=== PATIENT | female | born 1980 | race Caucasian/White ===

== ENCOUNTER 2020-04-14 11:46 | Emergency (ER) | payer OTHER ==
[2020-04-14] MEDS ORDERED: FAMOTIDINE 20 MG/2 ML VIAL IV ONE (12:53)
[2020-04-14] MEDS ORDERED: DIPHENHYDRAMINE 50 MG/ML VIAL ONE (12:53)
[2020-04-14] MEDS ORDERED: dexAMETHasone 10 MG/ML VIAL ONE (12:53)
--- NOTE | 2020-04-14 16:32 | RAD REPORT ---
EXAM DESCRIPTION: RAD - Chest Single View - 04/14/2020 3:42 pm CLINICAL HISTORY: COUGH, allergic reaction, shortness of breath COMPARISON: None TECHNIQUE: AP portable chest image was obtained 04/14/2020 3:42 pm . FINDINGS: Lungs are clear. Heart and vasculature are normal. No measurable pleural effusion and no p neumothorax. No acute bony abnormality seen. No acute aortic findings suspected. IMPRESSION: No acute cardiopulmonary process.
--- NOTE | 2020-04-14 17:02 | EDPHYS ---
Physician Documentation [facility] Name: Mikaela Davila Age: 39 yrs Sex: Female : 1980 Arrival Date: 04/14/2020 Time: 11:47 Bed 26 Private MD: ED Physician Jose Aldridge HPI: 04/14 12:21 This 39 yrs old Female presents to ER via Ambulatory with complaints of jmm Allergic Reaction - amoxiclav, Hives. 12:21 Onset: The symptoms/episode began/occurred gradually, today. Associated signs and jmm symptoms: Pertinent negatives: abdominal pain, fever, Syncope vomiting. This is a 39 year old female with no chronic medical conditions that presents to the ED with complaints of diffuse rash after taking augmentin. Denies vomiting, or shortness of breath. Historical: - Allergies: 04/15 11:28 No Known Allergies; iw - Social history:: Smoking status: unknown. ROS: 04/14 12:21 Constitutional: Negative for fever, chills, and weight loss, Cardiovascular: Negative jmm for chest pain, palpitations, and edema, Respiratory: Negative for shortness of breath, cough, wheezing, and pleuritic chest pain. Skin: Positive for rash. All other systems are negative. Exam: 12:21 Constitutional: This is a well developed, well nourished patient who is awake, alert, jmm and in no acute distress. Head/Face: atraumatic. Eyes: EOMI, no conjunctival erythema appreciated ENT: Moist Mucus Membranes Neck: Trachea midline, Supple Chest/axilla: Normal chest wall appearance and motion. Cardiovascular: Regular rate and rhythm. No edema appreciated Respiratory: Normal respirations, no respiratory distress appreciated Abdomen/GI: Non distended, soft Back: Normal ROM 12:21 Skin: erythematous rash noted to the back, forearms, hands. 12:21 Neuro: Orientation: is normal, Mentation: is normal, Memory: is normal. 12:21 Psych: Behavior/mood is pleasant, cooperative. Vital Signs: 11:53 BP 164 / 78; Pulse 103; Resp 18 S; Temp 99.3; Pulse Ox 98% on R/A; Weight 108.86 kg; iw Height 5 ft. 8 in. (172.72 cm); 17:02 BP 128 / 63; Pulse 77; Resp 16; Temp 98.0; Pulse Ox 99% ; iw 11:53 Body Mass Index 36.49 (108.86 kg, 172.72 cm) MDM: 12:19 Patient medically screened. [facility] 17:01 Data reviewed: vital signs, nurses notes. Counseling: I had a detailed discussion with alisa the patient and/or guardian regarding: the historical points, exam findings, and any diagnostic results supporting the discharge/admit diagnosis, the need for outpatient follow up, to return to the emergency department if symptoms worsen or persist or if there are any questions or concerns that arise at home. 04/14 13:14 Order name: COVID-19 [facility] 04/14 14:23 Order name: Chest Single View XRAY; Complete Time: 16:35 [facility] 04/14 12:21 Order name: Saline Lock; Complete Time: 12:47 [facility] Administered Medications: 12:47 Drug: Decadron - Dexamethasone 10 mg Route: IVP; Site: right hand; 12:47 Drug: Benadryl 25 mg Route: IVP; Site: right hand; 12:47 Drug: Pepcid 20 mg Route: IVP; Site: right hand; Disposition: 17:33 Co-signature as Attending Physician, Jose Aldridge MD. rn Disposition: 04/14/20 17:01 Discharged to Home. Impression: Rash and other nonspecific skin eruption, Acute upper respiratory infection, unspecified. - Condition is Stable. - Discharge Instructions: Rash, Upper Respiratory Infection, Adult. - Prescriptions for Hydroxyzine HCl 25 mg Oral Tablet - take 1 tablet by ORAL route every 6 hours As needed; 30 tablet. Prednisone 20 mg Oral Tablet - take 3 tablet by ORAL route once daily for 5 days; 15 tablet. Albuterol Sulfate 90 mcg/actuation - inhale 1-2 puff by INHALATION route every 4-6 hours; 1 Inhaler. - Medication Reconciliation Form, Thank You Letter, Antibiotic Education, Prescription Opioid Use form. - Follow up: Private Physician; When: 2 - 3 days; Reason: Recheck today's complaints, Continuance of care, Re-evaluation by your physician. Signatures: Dispatcher [employer] EDMS Raffi Cai PA PA [facility] Lianne Tafoya RN RN Jose Aldridge MD MD yarn examiner: (The following items were deleted from the chart) 17:18 17:01 04/14/2020 17:01 Discharged to Home. Impression: Rash and other nonspecific skin iw eruption; Acute upper respiratory infection, unspecified. Condition is Stable. Forms are Medication Reconciliation Form, Thank You Letter, Antibiotic Education, Prescription Opioid Use. Follow up: Private Physician; When: 2 - 3 days; Reason: Recheck today's complaints, Continuance of care, Re-evaluation by your physician. ilana
--- NOTE | 2020-04-14 17:02 | ER ---
Nurse's Notes [facility] Name: Mikaela Davila Age: 39 yrs Sex: Female : 1980 Arrival Date: 04/14/2020 Time: 11:47 Bed 26 Private MD: Diagnosis: Rash and other nonspecific skin eruption;Acute upper respiratory infection, unspecified Presentation: 04/14 11:53 Chief complaint: Patient states: took some amoxicillin about 40 minutes ago and started iw to break out in hives 10 minutes later. Ebola Screen: Patient negative for fever greater than or equal to 101.5 degrees Fahrenheit, and additional compatible Ebola Virus Disease symptoms Patient denies exposure to infectious person. Patient denies travel to an Ebola-affected area in the 21 days before illness onset. No symptoms or risks identified at this time. Initial Sepsis Screen: Does the patient meet any 2 criteria? No. Patient's initial sepsis screen is negative. Does the patient have a suspected source of infection? No. Patient's initial sepsis screen is negative. Risk Assessment: Do you want to hurt yourself or someone else? Patient reports no desire to harm self or others. Onset of symptoms was April 14, 2020. 11:53 Method Of Arrival: Ambulatory iw 11:53 Acuity: CECILIO 3 iw 12:00 Anaphylaxis evaluation, the patient reports or I have noted the following symptoms iw which indicate a significant risk of anaphylaxis:. 12:00 Coronavirus screen: At this time, the client does not indicate any symptoms associated iw with coronavirus-19. Triage Assessment: 16:00 General: Appears in no apparent distress. iw 16:00 General: Behavior is calm. iw Historical: - Allergies: 04/15 11:28 No Known Allergies; iw - Social history:: Smoking status: unknown. Screenin/27 17:01 Abuse screen: Denies threats or abuse. Denies injuries from another. Nutritional iw screening: No deficits noted. Tuberculosis screening: No symptoms or risk factors identified. Fall Risk None identified. Assessment: 12:00 General: Appears in no apparent distress. Behavior is calm, cooperative. Pain:. iw 12:00 Respiratory: Airway is patent. iw 13:00 Respiratory: Respiratory effort is even, unlabored, Breath sounds are clear. iw 17:01 Reassessment: Patient appears in no apparent distress at this time. Patient and/or iw family updated on plan of care and expected duration. Pain level reassessed. Patient is alert, oriented x 3, equal unlabored respirations, skin warm/dry/pink. 17:01 Reassessment: Patient states feeling better. Patient states symptoms have improved. iw Vital Signs: 11:53 BP 164 / 78; Pulse 103; Resp 18 S; Temp 99.3; Pulse Ox 98% on R/A; Weight 108.86 kg; iw Height 5 ft. 8 in. (172.72 cm); 17:02 BP 128 / 63; Pulse 77; Resp 16; Temp 98.0; Pulse Ox 99% ; iw 11:53 Body Mass Index 36.49 (108.86 kg, 172.72 cm) iw ED Course: 11:47 Patient arrived in ED. as 11:55 Triage completed. iw 11:55 Raffi Cai PA is PHCP. [facility] 11:56 Jose Aldridge MD is Attending Physician. [facility] 11:58 Lianne Tafoya RN is Primary Nurse. iw 11:58 Arm band placed on. iw 12:00 Patient has correct armband on for positive identification. iw 12:30 Inserted saline lock: 22 gauge. iw 15:42 Chest Single View XRAY In Process Unspecified. EDMS 17:17 No provider procedures requiring assistance completed. IV discontinued. iw Administered Medications: 12:47 Drug: Decadron - Dexamethasone 10 mg Route: IVP; Site: right hand; iw 12:47 Drug: Benadryl 25 mg Route: IVP; Site: right hand; iw 12:47 Drug: Pepcid 20 mg Route: IVP; Site: right hand; iw Outcome: 17:01 Discharge ordered by . [facility] 17:17 Discharged to home ambulatory. iw 17:17 Condition: good 17:17 Discharge instructions given to 17:18 Patient left the ED. iw Addendum: 04/17/2020 08:01 Addendum: COVID-19 Result: Negative result given to RN to notify pt. Notified pt of d m5 negative COVID 19 swab results. Pt advised that even with a negative test result they should remain in isolation until symptom free for 3 days without medication. Pt also advised to return to the ED for worsening symptoms. Signatures: Dispatcher [employer] EDMS Dawna Emanuel, RN RN dm5 Raffi Cai PA PA jmm Martinez, Amelia as Williams, Irene, RN RN iw
[2020-04-14 17:26] VITALS: BP 128/63; TEMP 98; O2SAT 99
== END 2020-04-14 17:18 | disposition home or self-care (01) ==
LOC: ER 11:46
DX: J06.9 Acute upper respiratory infection, unspecified (principal); Z20.828 Contact with and (suspected) exposure to other viral communicable diseases
CPT/HCPCS: 71045; 96375; 96374; 99283; U0002; J1200; J1100

== ENCOUNTER 2020-11-22 09:05 | Emergency (ER) | payer OTHER ==
--- OUTSIDE RECORDS SUMMARY | 2020-11-22 09:08 | XMS REPORT | Continuity of Care Document ---
:1980 Author Organization [facility] t Address [address] [place] [address] Care Team Providers Name Role Phone Nalini PARIKH Attending Clinician Phu LUIS Attending Clinician Problems This patient has no known problems. Allergies, Adverse Reactions, Alerts This patient has no known allergies or adverse reactions. Medications This patient has no known medications. Procedures This patient has no known procedures. Encounters Start End Encounter Admission Attending Care Care Encounter Source Date/Time Date/Time Type Type Clinicians Facility Department ID 2020-11-15 2020-11-15 Patient [facility] [id number] 00:00:00 00:00:00 Secure Msg Brayan Martinez [id number] [place] [id number] Professio [phone] [place] [address] Building 2020-11-01 2020-11-01 Telephone [facility] [id number] 00:00:00 00:00:00 [facility] [id number] [place] [id number] Professio [phone] [place] [address] Office [address] 2020-11-01 2020-11-01 Telephone Nalini [facility] [id number] 00:00:00 00:00:00 Brayan Martinez [id number] [place] [id number] Professio [phone] [facility] 044 [facility] 2020-10-15 2020-10-15 Telephone Herbertgonzalo [facility] [id number] 00:00:00 00:00:00 Brayan Martinez [id number] [place] [id number] [facility] [phone] [address] Results This patient has no known results.
--- NOTE | 2020-11-22 09:46 | ER ---
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 Coronavirus screen: Client denies travel out of the [place] in the last 14 days. At this time, the client does not indicate any symptoms associated with coronavirus-19. Ebola Screen: Patient negative for fever greater than or equal to 101.5 degrees Fahrenheit, and additional compatible Ebola Virus Disease symptoms Patient denies exposure to infectious person. Patient denies travel to an Ebola-affected area in the 21 days before illness onset. No symptoms or risks identified at this time. Initial Sepsis Screen: Does the patient meet any 2 criteria? No. Patient's initial sepsis screen is negative. Does the patient have a suspected source of infection? No. Patient's initial sepsis screen is negative. Risk Assessment: Do you want to hurt yourself or someone else? Patient reports no desire to harm self or others. Onset of symptoms was November 22, 2020. 09:52 Method Of Arrival: Ambulatory ca1 09:52 Acuity: CECILIO 4 ca1 Triage Assessment: 09:53 General: Appears in no apparent distress. comfortable, Behavior is calm, cooperative, ca1 appropriate for age. Pain: Complains of pain in left hand. Injury Description: Laceration sustained to palmar aspect of distal phalanx of left ring finger is clean, superficial, 0.5 to 2.5 cm long, was sustained 1-2 hours ago. no active bleeding noted at this time. 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 Last tetanus immunization: up to date. - Social history:: Smoking status: Patient reports the use of cigarette tobacco products, smokes one-half pack cigarettes per day. Screenin:54 Abuse screen: Denies threats or abuse. Denies injuries from another. Nutritional ca1 screening: No deficits noted. Tuberculosis screening: No symptoms or risk factors identified. Fall Risk None identified. Assessment: 09:54 Reassessment: see triage notes. ca1 Vital Signs: 09:52 BP 121 / 86; Pulse 89; Resp 16 S; Temp 97.3(TE); Pulse Ox 100% on R/A; Pain 3/10; ca1 ED Course: 09:18 Patient arrived in ED. mr 09:31 Eric Franco PA is PHCP. jr8 09:31 Jameel Yin MD is Attending Physician. jr8 09:43 Wound care: to laceration located on left middle finger was cleaned with soap and mt water, dressed with 4X4s, Kerlix, Patient tolerated well. 09:45 Luli Thompson RN is Primary Nurse. ca1 09:53 Triage completed. ca1 09:53 Arm band placed on right wrist. ca1 09:54 Patient has correct armband on for positive identification. ca1 09:55 Assist provider with laceration repair on palmar aspect of distal phalanx of left ring ca1 finger that was 2.5 cm. or less using Steri-strips. Set up tray. Performed by Eric DOTY Dressed with 4X4s, Patient tolerated well. Patient did not have IV access during this emergency room visit. Administered Medications: No medications were administered Outcome: 09:46 Discharge ordered by . jr8 09:55 Discharged to home ambulatory. ca1 09:55 Condition: stable 09:55 Discharge instructions given to patient, Instructed on discharge instructions, follow up and referral plans. wound care, Demonstrated understanding of instructions, follow-up care, wound care. 09:56 Patient left the ED. ca1 Signatures: Ambar Lu mr Eric Franco PA PA 8 Deandra Cho co Luli Thompson, DUDLEY RN ca1
--- NOTE | 2020-11-22 09:46 | EDPHYS ---
Physician Documentation [facility] Name: Mikaela Davila Age: 40 yrs Sex: Female : 1980 Arrival Date: 11/22/2020 Time: 09:18 Bed 12 Private MD: ED Physician Jameel Yin HPI: 11/22 09:43 This 40 yrs old Female presents to ER via Unassigned with complaints of jr8 Finger Laceration. 09:43 Onset: The symptoms/episode began/occurred acutely, today. Modifying factors: The jr8 symptoms are alleviated by nothing, the symptoms are aggravated by nothing. Associated signs and symptoms: The patient has no apparent associated signs or symptoms. Severity of symptoms: At their worst the symptoms were mild, in the emergency department the symptoms are unchanged. The patient has not experienced similar symptoms in the past. The patient has not recently seen a physician. Patient stated that she was reaching for a toothbrush and accidentally cut her left middle finger on a razor.. 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 Last tetanus immunization: up to date. - Social history:: Smoking status: Patient reports the use of cigarette tobacco products, smokes one-half pack cigarettes per day. ROS: 09:43 Eyes: Negative for injury, pain, redness, and discharge, ENT: Negative for injury, jr8 pain, and discharge, Neck: Negative for injury, pain, and swelling, Cardiovascular: Negative for chest pain, palpitations, and edema, Respiratory: Negative for shortness of breath, cough, wheezing, and pleuritic chest pain, Abdomen/GI: Negative for abdominal pain, nausea, vomiting, diarrhea, and constipation, Back: Negative for injury and pain, MS/Extremity: Negative for injury and deformity, Neuro: Negative for headache, weakness, numbness, tingling, and seizure. 09:43 Skin: Positive for laceration(s). Exam: 09:43 Constitutional: This is a well developed, well nourished patient who is awake, alert, jr8 and in no acute distress. Cardiovascular: Regular rate and rhythm with a normal S1 and S2. No gallops, murmurs, or rubs. Normal PMI, no JVD. No pulse deficits. Respiratory: Lungs have equal breath sounds bilaterally, clear to auscultation and percussion. No rales, rhonchi or wheezes noted. No increased work of breathing, no retractions or nasal flaring. MS/ Extremity: Pulses equal, no cyanosis. Neurovascular intact. Full, normal range of motion. Neuro: Awake and alert, GCS 15, oriented to person, place, time, and situation. Cranial nerves II-XII grossly intact. Motor strength 5/5 in all extremities. Sensory grossly intact. Cerebellar exam normal. Normal gait. 09:43 Skin: Patient has small superficial laceration to the tip of the left middle finger.. Vital Signs: 09:52 BP 121 / 86; Pulse 89; Resp 16 S; Temp 97.3(TE); Pulse Ox 100% on R/A; Pain 3/10; ca1 MDM: 09:31 Patient medically screened. jr8 09:43 Data reviewed: vital signs, nurses notes, and as a result, I will discharge patient. jr8 Data interpreted: Pulse oximetry: on room air is 100 %. Interpretation: normal. Counseling: I had a detailed discussion with the patient and/or guardian regarding: the historical points, exam findings, and any diagnostic results supporting the discharge/admit diagnosis, the need for outpatient follow up, a family practitioner, to return to the emergency department if symptoms worsen or persist or if there are any questions or concerns that arise at home. ED course: Disc discussed with patient that at this time there is no need for laceration repair of the digit. Superficial in nature. Wound was cleaned and dressed. Can follow-up with primary care. Watch for signs of infection. If this were to happen to come back for further evaluation antibiotic therapy.. Administered Medications: No medications were administered Disposition: 10:16 Co-signature as Attending Physician, Jameel Yin MD I agree with the assessment and kdr plan of care. Disposition Summary: 11/22/20 09:46 Discharge Ordered Location: Home jr8 Problem: new jr8 Symptoms: have improved jr8 Condition: Stable jr8 Diagnosis - Laceration without foreign body of left middle finger without damage to nail jr8 Followup: jr8 - With: Private Physician - When: As needed - Reason: Wound Recheck, Recheck today's complaints, Continuance of care, Re-evaluation by your physician Discharge Instructions: - Discharge Summary Sheet jr8 - Laceration Care, Adult jr8 Forms: - Medication Reconciliation Form jr8 - Thank You Letter jr8 - Antibiotic Education jr8 - Prescription Opioid Use jr8 - Work release form ca1 Signatures: Jameel Yin MD MD [facility] Eric Franco PA PA jr8 Luli Thompson RN RN ca1
[2020-11-22 10:05] VITALS: BP 121/86; TEMP 97.3; O2SAT 100
== END 2020-11-22 09:56 | disposition home or self-care (01) ==
LOC: ER 09:05
DX: S61.213A Laceration without foreign body of left middle finger without damage to nail, initial encounter (principal); W45.8XXA Other foreign body or object entering through skin, initial encounter; Y93.89 Activity, other specified; Y92.002 Bathroom of unspecified non-institutional (private) residence as the place of occurrence of the external cause; Z88.1 Allergy status to other antibiotic agents; Z88.8 Allergy status to other drugs, medicaments and biological substances; E11.9 Type 2 diabetes mellitus without complications; F17.210 Nicotine dependence, cigarettes, uncomplicated
CPT/HCPCS: 99283

== ENCOUNTER 2020-12-05 19:26 | Emergency (ER) | payer OTHER ==
--- OUTSIDE RECORDS SUMMARY | 2020-12-05 19:30 | XMS REPORT | Continuity of Care Document ---
:1980 Author Organization [facility] t Address [address] [place] [address] Care Team Providers Name Role Phone Nalini [...] Clinicians Facility Department ID 2020-11-15 2020-11-15 Patient [facility] [id number] 00:00:00 00:00:00 Secure Msg Brayan Martinez [id number] [place] [id number] Professio [phone] [place] [address] Building 2020-11-01 2020-11-01 Telephone [facility] [id number] 00:00:00 00:00:00 [facility] [id number] [place] [id number] Professio [phone] nal [facility] Office Building One 2020-11-01 2020-11-01 Telephone [facility] [id number] 00:00:00 00:00:00 Brayan Martinez [id number] [place] [id number] Profess[address] [phone] [address] 2020-10-15 2020-10-15 Telephone [facility] [id number] 00:00:00 00:00:00 Brayan Martinez [id number] [place] [id number] [facility] [phone] [address] Results This patient has no known results.
[2020-12-05 22:15] LABS: Absolute Lymphocytes (CBC) 2.3 K/uL (0.7-4.9); Basophils % 0.6 % (0-1.3); Hematocrit 36.2 % (36.0-45.0); Lymphocytes % 17.5 % (15.3-44.8); MPV 6.6 fL (7.6-11.3); RBC Red Blood Cell Count 4.09 M/uL (3.86-4.86)
[2020-12-05 22:33] LABS: Urine Specific Gravity/Preg 1.025 (1.005-1.030)
[2020-12-05] MEDS ORDERED: TETANUS & DIPHTHERIA TOX,ADULT 0.5 ML VIAL ONE (22:34)
[2020-12-05 22:36] LABS: ALT/SGPT 22 U/L (12-78); AST/SGOT 16 U/L (15-37); Albumin 3.9 g/dL (3.4-5.0); Alkaline Phosphatase 68 U/L (45-117); BUN Blood Urea Nitrogen 12 mg/dL (7-18); Bicarbonate 29 mmol/L (21-32); Bilirubin Direct < 0.1 mg/dL (0-0.2); Bilirubin Total 0.3 mg/dL (0.2-1.0); Glucose Level 94 mg/dL (74-106); Potassium 4.1 mmol/L (3.5-5.1); Protein, Total 7.2 g/dL (6.4-8.2); Sodium Level 141 mmol/L (136-145)
--- NOTE | 2020-12-05 22:57 | EDPHYS ---
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 cp 22:03 Area of exposure: right index finger. Context: The problem was sustained at a dental cp office. Onset: The symptoms/episode began/occurred today. Symptoms: The patient does not have any acute complaints. Discussed low incidence and risk for amado HIV, hepatitis. Patient requesting to start antiviral therapy. 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 - Social history:: Smoking status: Patient reports the use of cigarette tobacco products, smokes one-half pack cigarettes per day, Patient uses alcohol, occasionally. ROS: 22:03 Constitutional: Negative for fever, poor PO intake. cp 22:03 Skin: Positive for puncture, of the dorsal side proximal phalanx right index finger. 22:05 All other systems are negative. cp Exam: 22:05 Head/Face: Normocephalic, atraumatic. cp 22:05 Constitutional: The patient appears in no acute distress, alert, awake, non-toxic, well developed, well nourished. 22:05 Cardiovascular: Rate: normal, Rhythm: regular. 22:05 Respiratory: the patient does not display signs of respiratory distress, Respirations: normal, no use of accessory muscles, no retractions. 22:05 Skin: cellulitis, is not appreciated, injury, that can be described as no foreign body, without bleeding, puncture(s), that are superficial, of the dorsal side proximal phalanx of right index finger. Vital Signs: 19:50 BP 140 / 84; Pulse 80; Resp 20; Temp 98.3(O); Pulse Ox 100% on R/A; Weight 104.33 kg kg (R); Height 5 ft. 8 in. (172.72 cm) (R); Pain 0/10; 21:54 BP 130 / 79; Pulse 77; Resp 18; Pulse Ox 100% on R/A; em 19:50 Body Mass Index 34.97 (104.33 kg, 172.72 cm) kg MDM: 21:53 Patient medically screened. cp 22:55 Data reviewed: vital signs, nurses notes, lab test result(s). cp 22:55 Counseling: I had a detailed discussion with the patient and/or guardian regarding: the cp historical points, exam findings, and any diagnostic results supporting the discharge/admit diagnosis, lab results, the need for outpatient follow up, a family practitioner, to return to the emergency department if symptoms worsen or persist or if there are any questions or concerns that arise at home. ED course: VSS. Labs reviewed and discussed. HIV and hepatitis panel pending. Patient instructed to access [place] for results. Will discharge to home for continued monitoring. Antiviral prescriptions given to take for next 28 days. 12/05 22:01 Order name: CBC with Diff; Complete Time: 22:33 cp 12/05 22:34 Interpretation: Normal except: WBC 13.10; MPV 6.6; NEUT A 9.6. cp 12/05 22:01 Order name: Chem 7; Complete Time: 22:50 cp 12/05 22:50 Interpretation: Normal except: CL 109. 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 Exp: em 07/18/2022. Lot #: [id number]. } Route: IM; Site: left deltoid; 22:22 Follow up: Response: No adverse reaction em Disposition: 23:00 Chart complete. cp 12/06 07:33 Co-signature as Attending Physician, Cecy Lagunas I agree with the assessment and plan sp3 of care. Disposition Summary: 12/05/20 22:56 Discharge Ordered Location: Home cp Problem: new cp Symptoms: have improved cp Condition: Stable cp Diagnosis - Puncture wound without foreign body of other finger without damage to nail, initial cp encounter - right index Followup: cp - With: Private Physician - When: 2 - 3 days - Reason: Recheck today's complaints Discharge Instructions: - Discharge Summary Sheet cp - Needlestick and Sharps Injury cp - Puncture Wound cp Forms: - Medication Reconciliation Form cp - Thank You Letter cp - Antibiotic Education cp - Prescription Opioid Use cp Prescriptions: - Isentress 400 mg Oral tablet - take 1 tablet by ORAL route 2 times per day for 28 days; 56 tablet; Refills: 0, cp Product Selection Permitted - Truvada 200-300 mg Oral tablet - take 1 tablet by ORAL route once daily for 28 days; 28 tablet; Refills: 0, cp Product Selection Permitted Signatures: Dispatcher [facility] EDKY Lewis Raya, RN RN em Reji Wooten PA PA cp Shena Cortez, DUDLEY RN Cecy Arita sp3 Corrections: (The following items were deleted from the chart) 12/05 22:35 22:03 HIV (1 ordered. EDKY EDMS
--- NOTE | 2020-12-05 22:57 | ER ---
Nurse's Notes 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 Coronavirus screen: Client denies travel out of the [place] in the last 14 days. At this time, unable to obtain information related to travel outside the [place] At this time, the client does not indicate any symptoms associated with coronavirus-19. Ebola Screen: Patient negative for fever greater than or equal to 101.5 degrees Fahrenheit, and additional compatible Ebola Virus Disease symptoms Patient denies exposure to infectious person. Patient denies travel to an Ebola-affected area in the 21 days before illness onset. Initial Sepsis Screen: Does the patient meet any 2 criteria? No. Patient's initial sepsis screen is negative. Does the patient have a suspected source of infection? No. Patient's initial sepsis screen is negative. Risk Assessment: Do you want to hurt yourself or someone else? Patient reports no desire to harm self or others. Onset of symptoms was December 05, 2020 at 18:45. 19:50 Method Of Arrival: Ambulatory kg 19:50 Acuity: CECILIO 4 kg Triage Assessment: 19:53 General: Appears in no apparent distress. Behavior is calm, cooperative, appropriate kg for age. Pain: Denies pain. 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 - Social history:: Smoking status: Patient reports the use of cigarette tobacco products, smokes one-half pack cigarettes per day, Patient uses alcohol, occasionally. Screenin:54 Abuse screen: Denies threats or abuse. Denies injuries from another. Nutritional em screening: No deficits noted. Tuberculosis screening: No symptoms or risk factors identified. Fall Risk None identified. Assessment: 21:54 General: Appears in no apparent distress. comfortable, Behavior is calm, cooperative, em appropriate for age. Pain: Denies pain. Neuro: Level of Consciousness is awake, alert, obeys commands, Oriented to person, place, time, situation. Cardiovascular: Capillary refill < 3 seconds Patient's skin is warm and dry. Respiratory: Airway is patent Respiratory effort is even, unlabored, Respiratory pattern is regular, symmetrical. GI: Abdomen is round non-distended. : No signs and/or symptoms were reported regarding the genitourinary system. EENT: No signs and/or symptoms were reported regarding the EENT system. Derm: Reports getting poked with a dirty dental tool while at work. Reports the tool breaking the skin and bleeding. Musculoskeletal: No signs and/or symptoms reported regarding the musculoskeletal system. Vital Signs: 19:50 BP 140 / 84; Pulse 80; Resp 20; Temp 98.3(O); Pulse Ox 100% on R/A; Weight 104.33 kg kg (R); Height 5 ft. 8 in. (172.72 cm) (R); Pain 0/10; 21:54 BP 130 / 79; Pulse 77; Resp 18; Pulse Ox 100% on R/A; em 19:50 Body Mass Index 34.97 (104.33 kg, 172.72 cm) kg ED Course: 19:29 Patient arrived in ED. cf2 19:53 Triage completed. kg 19:53 Arm band placed on right wrist. kg 21:25 Reji Wooten PA is PHCP. cp 21:25 Jose Aldridge MD is Attending Physician. cp 21:53 Lewis Raya, DUDLEY is Primary Nurse. em 21:54 Patient has correct armband on for positive identification. Placed in gown. Bed in low em position. Call light in reach. Pulse ox on. NIBP on. Warm blanket given. 21:54 No provider procedures requiring assistance completed. em 22:11 Cecy Lagunas is Attending Physician. cp 23:05 Patient did not have IV access during this emergency room visit. 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 Exp: em 07/18/2022. Lot #: [id number]. } Route: IM; Site: left deltoid; 22:22 Follow up: Response: No adverse reaction em Outcome: 22:56 Discharge ordered by MD. cp 23:05 Discharged to home ld1 23:05 Condition: stable 23:05 Discharge instructions given to patient, Instructed on discharge instructions, follow up and referral plans. medication usage, Demonstrated understanding of instructions, follow-up care, medications. 23:06 Patient left the ED. ld1 Signatures: Lewis Raya RN RN em Reji Wooten PA PA cp Reji Frias cf2 Lilibeth Adams RN RN ld1 Shena Cortez RN RN kg
[2020-12-05] MEDS ORDERED: ACETAMINOPHEN 500 MG TAB ONE (23:10)
[2020-12-06 01:49] VITALS: TEMP 98.3; O2SAT 100
[2020-12-06 01:52] VITALS: BP 130/79
[2020-12-10 15:34] LABS: HIV AG/AB 4TH GEN Non-reactive (Non-reactive)
== END 2020-12-05 23:06 | disposition home or self-care (01) ==
LOC: ER 19:26
DX: S61.230A Puncture wound without foreign body of right index finger without damage to nail, initial encounter (principal); F17.210 Nicotine dependence, cigarettes, uncomplicated; E11.9 Type 2 diabetes mellitus without complications; E03.9 Hypothyroidism, unspecified; Z23 Encounter for immunization; Z88.0 Allergy status to penicillin; Z88.1 Allergy status to other antibiotic agents; Z88.8 Allergy status to other drugs, medicaments and biological substances
CPT/HCPCS: 36415; 80048; 80076; 81025; 85025; 87389; 90471; 90714; 99283

== ENCOUNTER 2021-11-07 19:07 | Emergency (ER) | payer OTHER, SELFPAY ==
--- OUTSIDE RECORDS SUMMARY | 2021-11-07 19:16 | XMS REPORT | Continuity of Care Document ---
:1980 Author Organization [facility] t Address [address] [place] [address] Care Team Providers Name Role Phone Nalini PARIKH Primary Care Physician MERRY Attending Clinician Unavailable Dari WILLAMS Attending Clinician Unavailable Matty BUCKNER, T Attending Clinician Unavailable FAUSTO Attending Clinician Unavailable Nalini PARIKH Attending Clinician Fausto PARIKH Attending Clinician Phu LUIS Attending Clinician Payers Payer Name Policy Type Policy Number Effective Date Expiration Date S ource Problems Condition Condition Condition Status Onset Resolution Last Treating Co mments Source Name Details Category Date Date Treatment Clinician Date Nausea Nausea Disease Active 2020-04 Overview: Univer s 0-01 Formattin ity of 00:00: g of this note Medical might be Branch different from the original. Added automatic ally from request for surgery [id number] Lower Lower Disease Active 2020-04 Overview: Univer s abdominal abdominal 0-01 Formattin i ty of pain pain 00:00: g of this note Medical might be Branch different from the original. Added automatic ally from request for surgery [id number] Change in Change in Disease Active 2020-04 Overview: Univers bowel bowel 0-01 Formattin ity of habits habits 00:00: g of this note Medical might be Branch different from the original. 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 00:00: [place] depression depression 00 Tn dical Branch Need for Need for Disease Active Unive rs 23-polyval 23-polyval 6-29 it y of ent ent 00:00: [place] pneumococc pneumococc 00 [facility] al al Branch polysaccha polysaccha ride ride vaccine vaccine PCOS PCOS Disease Active 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: Leonel brenner syndrome) syndrome) 00 [facility] frida Branch Plantar Plantar Disease Active Univers fasciitis fasciitis 2-27 ity of 00:00: [place] 00 Medical Branch Diabetes Diabetes Disease Active Unive rs mellitus mellitus 2-27 ity of type 2 in type 2 in 00:00: Leonel brenner obese obese 00 Medical Branch Elevated Elevated Disease Active Unive rs blood blood 2-27 ity of pressure pressure 00:00: [place] reading in reading in 00 Tn dical office office Branch without without diagnosis diagnosis of of hypertensi hypertensi on on Encounter Encounter Disease Active Uni vers for for 2-27 ity of routine routine 00:00: [place] [facility] 00 Medical vision vision Branch examinatio examinatio n n Left wrist Left wrist Disease Active U nivers pain pain 2-18 ity of 00:00: [place] 00 Medical Branch Diarrhea, Diarrhea, Disease Active Uni vers unspecifie unspecifie 2-18 it y of d type d type 00:00: [place] 00 Medical Branch Left Left Disease Active 2020- Univers shoulder shoulder 2-13 ity of pain, pain, 00:00: [place] unspecifie unspecifie 00 Tn dical d d Branch chronicity chronicity 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 2-13 it y of asthma asthma 00:00: [place] without without 00 Medical complicati complicati Br anch on on Food Food Disease Active 2020- Univers sensitivit sensitivit 2-13 it y of y with y with 00:00: [place] gastrointe gastrointe 00 Tn dical stinal stinal Branch symptoms symptoms Neck pain Neck pain Disease Active 2020 Uni vers on left on left 2-13 ity of side side 00:00: [place] 00 Medical Branch Depression Depression Disease Active 2020-0 U nivers , , 2-13 ity of unspecifie unspecifie 00:[place] 00 Medical depression depression Br anch type type Acquired Acquired Disease Active 2019- Unive rs hypothyroi hypothyroi 2-13 it y of dism dism 00:00: [place] 00 Medical Branch Left hip Left hip Disease Active 2019- Unive rs pain pain 2-13 ity of 00:00: [place] 00 Medical Branch Fibromyalg Fibromyalg Disease Active 2019- U nivers ia ia 2-13 ity of 00:00: [place] 00 Medical Branch Chronic Chronic Disease Active 2020-0 Univers left left 2-13 ity of shoulder shoulder 00:00: [place] pain pain 00 Medical Branch Chronic Chronic Disease Active 2020-0 Univers pain of pain of 2-13 ity of left knee left [place] 00:[place] Pharyngiti Pharyngiti Disease Active 2019- U nivers s, s, 7-24 ity of unspecifie unspecifie [place] etiology d etiology 00 Tn dical Branch Bacterial Bacterial Disease Active Uni vers upper upper 7-24 ity of respirator respirator 00:[place] y 00 Medical infection infection Bran ch Productive Productive Disease Active 2019- U nivers cough cough 7-24 ity of 00:00: [place] 00 Medical Branch Body mass Body mass Disease Active 2018- Uni vers index index 5-29 ity of (BMI) of (BMI) of 00:00: [place] 34.0 to 34.0 to 00 Medical 34.9 in 34.9 in Branch adult adult Disease Active U nivers depression depression 6-21 it y of 00:00: [place] 00 Medical Branch Class 2 Class 2 Disease Active 2018-0 Univers obesity obesity 5-25 ity of due to due to 00:00: [place] excess excess 00 Medical calories calories Branch without without serious serious comorbidit comorbidit y with y with body mass body mass index index (BMI) of (BMI) of 38.0 to 38.0 to 38.9 in 38.9 in adult adult Excessive Excessive Disease Active Uni vers weight weight 1-18 ity of gain gain 00:00: [place] 00 Medical Branch Mild Mild Disease Active 2016-04 Univers intermitte intermitte 0-30 it y of nt asthma nt asthma 00:00[place] without without 00 Medical complicati complicati Br anch on on Anxiety Anxiety Disease Active 2016-04 Univers 0-30 ity of 00:00: [place] 00 Medical Branch Adrenal Adrenal Disease Active 2016-04 Univers tumor tumor 0-30 ity of 00:00: [place] 00 Medical Branch Absence of Absence of Disease Active 2016-04 U nivers menstruati menstruati 0-04 it y of on on 00:00: [place] 00 Medical Branch Toe Toe Disease Active Univers fracture, fracture, 7-26 ity of left, with left, with 00:[place] routine routine 00 Medical healing, healing, Branch subsequent subsequent encounter encounter Pain of Pain of Disease Active Univers toe of toe of 6-22 ity of left foot left foot 00:00[place] S/P S/P Disease Active Univers orthopedic orthopedic 6-22 it y of surgery, surgery, 00:00: [place] follow-up follow-up 00 [facility] frida exam exam Branch History of History of Disease Active U johnny cervical cervical 2-19 ity of dysplasia dysplasia 00:00[place] Lump or Lump or Disease Active Univers mass in mass in 1-21 ity of breast breast 00:00: [place] 00 Medical Branch Allergies, Adverse Reactions, Alerts Allergy Allergy Status Severity Reaction(s) Onset Inactive Treating Comm ents Source Name Type Date Date Clinician AMOXICIL DRUG Active High Anaphylaxis Uni vers LEXI-POT 4-14 ity of CLAVULAN 00:00: [place] ATE 00 Medical Branch Amoxicil Propensi Active Swelling Univ ers lexi-Pot ty to 4-14 ity of Clavulan adverse 00:00: [place] ate reaction 00 Medical s to Branch drug METOCLOP DRUG Active Hallucinates 2015-0 Un becka RAMIDE INGREDI 1-11 ity of HCL 00:00: [place] 00 Medical Branch Metoclop Propensi Active Hallucinatio 2015-0 Univers ramide ty to ns 1-11 ity of Hcl adverse 00:00: [place] reaction 00 Medical s Branch Social History Social Habit Start Date Stop Date Quantity Comments Source Exposure to Not sure [facility] SARS-CoV-2 (event) [place] [facility] History SDOK [facility] University o f Alcohol Std Drinks [place] [facility] [place] History [facility] o f Alcohol Binge [facility] Branch Alcohol intake 2021-03-24 2021-03-24 0 /d University of 00:00:00 00:00:00 [facility] Cigarettes smoked 2021-02-12 2021-02-12 Univers ity of current (pack per 00:00:00 00:00:00 [facility] ) - Reported Branch Cigarette 2021-02-12 2021-02-12 University of pack-years 00:00:00 00:00:00 [facility] Tobacco use and 2021-02-12 2021-02-12 Smokeless Universit y of exposure 00:00:00 00:00:00 tobacco non-user [facility] [place] [facility] Comment 2019-04-27 2019-04-27 rare Universit y of 00:00:00 00:00:00 [facility] History of tobacco 2016-09-27 Cigarette Smoker University of use 00:00:00 [facility] Sex [birth year] Universit y of 00:00:00 00:00:00 [facility] Smoking Status Start Date Stop Date Source Smokes tobacco daily 2021-02-12 00:00:00 Univers ity of [facility] Medications Ordered Filled Start Stop Current Ordering Indication Dosage Frequency Signature Comments Components Source Medication Medication Date Date Medication? Clinician (SIG) Name Name albuterol Yes [id number] 2{puff} Inhale 2 Univers (PROAIR 2-22 103 Puffs ity of HFA) 90 00:00: every 6 [place] mcg/actuati 00 (six) Medical on inhaler hours as Branc h needed for Wheezing or Shortness of Breath. ALBUTEROL Yes [id number] INHALE 2 Univers 90 2- 103 PUFFS ity of mcg/actuati 00:00: EVERY 6 [place] as on inhaler 00 HOURS Medical Branch ALBUTEROL Yes [id number] INHALE 2 Univers 90 2-22 103 PUFFS ity of mcg/actuati 00:00: EVERY 6 [place] on inhaler 00 HOURS Medical Branch albuterol 2021- No [id number] 2{puff} Inhale 2 Univers (PROAIR 06-10- 103 Puffs ity of HFA) 90 00:00: 00:00 every 6 [place] mcg/actuati 00 :00 (six) Medical on inhaler hours as Branc h needed for Wheezing or Shortness of Breath. pantoprazol 2020-04 Yes [id number] 40mg Take 1 Univers e 40 mg EC 2-06 tablet by ity of tablet 00:00: mouth 2 [place] (two) Medical times Branch daily. pantoprazol 2020-04 Yes [id number] 40mg Take 1 Univers e 40 mg EC 2-06 tablet by ity of tablet 00:00: mouth 2 [place] (two) Medical times Branch daily. pantoprazol 2020-04 Yes [id number] 40mg Take 1 Univers e 40 mg EC 2-06 tablet by ity of tablet 00:00: mouth 2 [place] (two) Medical times Branch daily. pantoprazol 2020-04 Yes [id number] 40mg Take 1 Univers e 40 mg EC 2-06 tablet by ity of tablet 00:00: mouth 2 [place] (two) Medical times Branch daily. PROAIR HFA 2020-04 Yes [id number] INHALE BY Univers 90 2- 103 MOUTH 2 ity of mcg/actuati 00:00: PUFFS [place] on inhaler 00 EVERY 6 Medica l HOURS Branch NEEDED PROAIR HFA 2020-04- No [id number] INHALE BY Univers 90 2-03 - 103 MOUTH 2 ity of mcg/actuati 00:00: 00:00 [place]S [place] on inhaler 00 :00 EVERY 6 Medica l HOURS Branch NEEDED guaiFENesin 2020-04 Yes [id number] 400mg Take 1 Univers 400 mg 1-22 tablet by ity of tablet 00:00: mouth [place] 00 every 4 Medical (four) Branch hours as needed for Cough. fluticasone 2020-04 Yes [id number] 1{puff} Inhale 1 Univers propionate 1-22 Puff every ity of 110 00:00: 12 [place] mcg/actuati 00 (twelve) Medi frida on inhaler hours. Branch guaiFENesin 2020-04 Yes [id number] 400mg Take 1 Univers 400 mg 1-22 tablet by ity of tablet 00:00: mouth [place] 00 every 4 Medical (four) Branch hours as needed for Cough. fluticasone 2020-04 Yes [id number] 1{puff} Inhale 1 Univers propionate 1-22 Puff every ity of 110 00:00: 12 [place] mcg/actuati 00 (twelve) Medi frida on inhaler hours. Branch guaiFENesin 2020-04 Yes [id number] 400mg Take 1 Univers 400 mg 1-22 tablet by ity of tablet 00:00: mouth [place] 00 every 4 Medical (four) Branch hours as needed for Cough. fluticasone 2020-04 Yes [id number] 1{puff} Inhale 1 Univers propionate 1-22 Puff every ity of 110 00:00: 12 [place] mcg/actuati 00 (twelve) Medi frida on inhaler hours. Branch guaiFENesin 2020-04 Yes [id number] 400mg Take 1 Univers 400 mg 1-22 tablet by ity of tablet 00:00: mouth [place] 00 every 4 Medical (four) Branch hours as needed for Cough. fluticasone 2020-04 Yes [id number] 1{puff} Inhale 1 Univers propionate 1-22 Puff every ity of 110 00:00: 12 [place] mcg/actuati 00 (twelve) Medi frida on inhaler hours. Branch pantoprazol 2020-04- No [id number] 40mg Take 1 Univers e 40 mg EC 04-27- tablet by ity of tablet 00:00: 00:00 mouth [place] 00 :00 daily for Medical 30 days. Branch metformin 2020- Yes [id number] 500mg Take 1 U nivers ER 500 mg 6-30 tablet by ity o f 24 hr 00:00: mouth [place] tablet 00 daily with Medical breakfast. Branch levothyroxi Yes [id number] 25ug Take 1 Univers ne 25 mcg 6-30 tablet by ity o f tablet 00:00: mouth [place] 00 every Medical morning. Branch metformin 2020-0 Yes [id number] 500mg Take 1 U nivers ER 500 mg 6-30 tablet by ity o f 24 hr 00:00: mouth [place] tablet 00 daily with Medical breakfast. Branch levothyroxi 2020-0 Yes [id number] 25ug Take 1 Univers ne 25 mcg 6-30 tablet by ity o f tablet 00:00: mouth [place] 00 every Medical morning. Branch metformin 2020-0 Yes [id number] 500mg Take 1 U nivers ER 500 mg 6-30 tablet by ity o f 24 hr 00:00: mouth [place] tablet 00 daily with Medical breakfast. Branch levothyroxi 2020-0 Yes [id number] 25ug Take 1 Univers ne 25 mcg 6-30 tablet by ity o f tablet 00:00: mouth [place] 00 every Medical morning. Branch metformin 2020-0 Yes [id number] 500mg Take 1 U nivers ER 500 mg 6-30 tablet by ity o f 24 hr 00:00: mouth [place] tablet 00 daily with Medical breakfast. Branch levothyroxi 2020-0 Yes [id number] 25ug Take 1 Univers ne 25 mcg 6-30 tablet by ity o f tablet 00:00: mouth [place] 00 every Medical morning. Branch semaglutide 2020-0 Yes [id number] 1mg inject 1 Univers (OZEMPIC) 1 6-29 mg under ity of mg/dose (2 00:00: the skin [place] mg/1.5 mL) 00 weekly. Medica l PnIj Start: Branch 0.25mg SC qweek X 4 weeks; then increase to 0.50mg SC qweek X 4 weeks; then increase to 1mg SC aqweek. niacin 100 2020-0 Yes [id number] 100mg Take 1 Univers mg tablet 6-29 tablet by ity o f 00:00: mouth at [place] 00 bedtime. Medical Branch semaglutide 2020-0 Yes [id number] 1mg inject 1 Univers (OZEMPIC) 1 6-29 mg under ity of mg/dose (2 00:00: the skin [place] mg/1.5 mL) 00 weekly. Medica l PnIj Start: Branch 0.25mg SC qweek X 4 weeks; then increase to 0.50mg SC qweek X 4 weeks; then increase to 1mg SC aqweek. niacin 100 Yes [id number] 100mg Take 1 Univers mg tablet 6-29 tablet by ity o f 00:00: mouth at [place] 00 bedtime. Medical Branch semaglutide Yes [id number] 1mg inject 1 Univers (OZEMPIC) 1 6-29 mg under ity of mg/dose (2 00:00: the skin [place] mg/1.5 mL) 00 weekly. Medica l PnIj Start: Branch 0.25mg SC qweek X 4 weeks; then increase to 0.50mg SC qweek X 4 weeks; then increase to 1mg SC aqweek. niacin 100 Yes [id number] 100mg Take 1 Univers mg tablet 6-29 tablet by ity o f 00:00: mouth at [place] 00 bedtime. Medical Branch semaglutide Yes [id number] 1mg inject 1 Univers (OZEMPIC) 1 6-29 mg under ity of mg/dose (2 00:00: the skin [place] mg/1.5 mL) 00 weekly. Medica l PnIj Start: Branch 0.25mg SC qweek X 4 weeks; then increase to 0.50mg SC qweek X 4 weeks; then increase to 1mg SC aqweek. niacin 100 Yes [id number] 100mg Take 1 Univers mg tablet 6-29 tablet by ity o f 00:00: mouth at [place] 00 bedtime. Medical Branch blood sugar Yes [id number] Use as Univers diagnostic 10-08 directed, ity of (BLOOD 00:00: TID, [place] GLUCOSE 00 DX:E11.9, Medical TEST) strip uses Branch [facility] brand lancets 33 Yes [id number] Use as U nivers gauge Misc 10-08 directed, ity of 00:00: TID, [place] 00 DX:E11.9, Medical uses Branch [facility] brand Miscellaneo Yes [id number] I10 - U nivers us Medical 10-08 Dispense ity o f Supply Kit 00:00: blood [place] 00 pressure Medical cuff (any Branch brand), take BP at home BID lisinopriL Yes [id number] 5mg Take 1 U nivers 5 mg tablet 6-22 tablet by ity of 00:00: mouth [place] 00 daily. Medical Branch albuterol-i Yes [id number] 1{puff} Inhale 1 Univers pratropium 6-22 Puff 4 ity of 20-100 00:00: (four) [place] mcg/actuati 00 times Medical on inhaler daily. Branch ipratropium Yes [id number] .5mg Inhale 2.5 Univers 0.02 % 6-22 mL every 6 ity of nebulizer 00:00: (six) [place] solution 00 hours as Medical needed for Branch Wheezing or Shortness of Breath. albuterol Yes [id number] 2.5mg Inhale 3 Univers 2.5 mg /3 6-22 mL every 4 ity of mL (0.083 00:00: (four) [place] %) 00 hours as Medical nebulizer needed for Bran ch solution Wheezing or Shortness of Breath. blood sugar Yes [id number] Use as Univers diagnostic 6-22 directed, ity of (BLOOD 00:00: TID, [place] GLUCOSE 00 DX:E11.9, Medical TEST) strip uses Branch [facility] brand lancets 33 Yes [id number] Use as U nivers gauge Misc 6-22 directed, ity of 00:00: TID, [place] 00 DX:E11.9, Medical uses Branch [facility] brand Miscellaneo Yes [id number] I10 - U nivers us Medical -22 Dispense ity o f Supply Kit 00:00: blood [place] 00 pressure Medical cuff (any Branch brand), take BP at home BID lisinopriL Yes [id number] 5mg Take 1 U nivers 5 mg tablet 6-22 tablet by ity of 00:00: mouth 00 daily. Medical Branch albuterol-i Yes [id number] 1{puff} Inhale 1 Univers pratropium 6-22 Puff 4 ity of 20-100 00:00: (four) [place] mcg/actuati 00 times Medical on inhaler daily. Branch ipratropium Yes [id number] .5mg Inhale 2.5 Univers 0.02 % 6-22 mL every 6 ity of nebulizer 00:00: (six) [place] solution 00 hours as Medical needed for Branch Wheezing or Shortness of Breath. albuterol 0 Yes [id number] 2.5mg Inhale 3 Univers 2.5 mg /3 6-22 mL every 4 ity of mL (0.083 00:00: (four) [place] %) 00 hours as Medical nebulizer needed for Bran ch solution Wheezing or Shortness of Breath. blood sugar 0 Yes [id number] Use as Univers diagnostic 6-22 directed, ity of (BLOOD 00:00: TID, [place] GLUCOSE 00 DX:E11.9, Medical TEST) strip uses Branch [facility] brand lancets 33 0 Yes [id number] Use as U nivers gauge Misc 6-22 directed, ity of 00:00: TID, [place] 00 DX:E11.9, Medical uses Branch [facility] brand Miscellaneo 0 Yes [id number] I10 - U nivers us Medical 22 Dispense ity o f Supply Kit 00:00: blood [place] 00 pressure Medical cuff (any Branch brand), take BP at home BID lisinopriL 0 Yes [id number] 5mg Take 1 U nivers 5 mg tablet 6-22 tablet by ity of 00:00: mouth [place] 00 daily. Medical Branch albuterol-i Yes [id number] 1{puff} Inhale 1 Univers pratropium 6-22 Puff 4 ity of 20-100 00:00: (four) [place] mcg/actuati 00 times Medical on inhaler daily. Branch ipratropium 0 Yes [id number] .5mg Inhale 2.5 Univers 0.02 % 6-22 mL every 6 ity of nebulizer 00:00: (six) [place] solution 00 hours as Medical needed for Branch Wheezing or Shortness of Breath. albuterol 0 Yes [id number] 2.5mg Inhale 3 Univers 2.5 mg /3 6-22 mL every 4 ity of mL (0.083 00:00: (four) [place] %) 00 hours as Medical nebulizer needed for Bran ch solution Wheezing or Shortness of Breath. blood sugar Yes [id number] Use as Univers diagnostic 6-22 directed, ity of (BLOOD 00:00: TID, [place] GLUCOSE 00 DX:E11.9, Medical TEST) strip uses Branch [facility] brand lancets 33 Yes [id number] Use as U nivers gauge Misc 6-22 directed, ity of 00:00: TID, [place] 00 DX:E11.9, Medical uses Branch [facility] brand Miscellaneo Yes [id number] I10 - U nivers us Medical 22 Dispense ity o f Supply Kit 00:00: blood 00 pressure Medical cuff (any Branch brand), take BP at home BID lisinopriL Yes [id number] 5mg Take 1 U nivers 5 mg tablet 6-22 tablet by ity of 00:00: mouth [place] 00 daily. Medical Branch albuterol-i Yes [id number] 1{puff} Inhale 1 Univers pratropium 6-22 Puff 4 ity of 20-100 00:00: (four) [place] mcg/actuati 00 times Medical on inhaler daily. Branch ipratropium Yes [id number] .5mg Inhale 2.5 Univers 0.02 % 6-22 mL every 6 ity of nebulizer 00:00: (six) [place] solution 00 hours as Medical needed for Branch Wheezing or Shortness of Breath. albuterol Yes [id number] 2.5mg Inhale 3 Univers 2.5 mg /3 6-22 mL every 4 ity of mL (0.083 00:00: (four) [place] %) 00 hours as Medical nebulizer needed for Bran ch solution Wheezing or Shortness of Breath. Miscellaneo Yes [id number] E11.9 - Univers Medical 525 Measure ity of Supply Kit 00:00: blood 00 sugar BID. Medical Dispense Branch Accucheck (or alternativ e brand covered by insurance) Miscellaneo Yes [id number] E11.9 - Univers Medical 525 Measure ity of Supply Kit 00:00: blood sugar BID. Medical Dispense Branch Accucheck (or alternativ e brand covered by insurance) Miscellaneo Yes [id number] E11.9 - Univers Medical 5-25 Measure ity of Supply Kit 00:00: blood [place] 00 sugar BID. Medical Dispense Branch Accucheck (or alternativ e brand covered by insurance) Miscellaneo 2020-0 Yes [id number] E11.9 - Univers Medical 5-25 Measure ity of Supply Kit 00:00: blood [place] 00 sugar BID. Medical Dispense Branch Accucheck (or alternativ e brand covered by insurance) formoterol 2020-0 Yes [id number] 12ug Inhale 1 Univers 12 mcg 6-02 capsule 2 ity of capsule for 00:00: (two) [place] inhaler 00 times Medical daily. Branch REPLACES SEREVENT formoterol 2020-0 Yes [id number] 12ug Inhale 1 Univers 12 mcg 6-02 capsule 2 ity of capsule for 00:00: (two) [place] inhaler 00 times Medical daily. Branch REPLACES SEREVENT formoterol 2020-0 Yes [id number] 12ug Inhale 1 Univers 12 mcg 6-02 capsule 2 ity of capsule for 00:00: (two) [place] inhaler 00 times Medical daily. Branch REPLACES SEREVENT formoterol 2020-0 Yes [id number] 12ug Inhale 1 Univers 12 mcg 6-02 capsule 2 ity of capsule for 00:00: (two) [place] inhaler 00 times Medical daily. Branch REPLACES SEREVENT hydrOXYzine 2020-0 Yes [id number] 25mg Take 1 Univers 25 mg 5-28 capsule by ity of capsule 00:00: mouth 3 [place] 00 (three) Medical times Branch daily as needed for Anxiety. hydrOXYzine 2020-0 Yes [id number] 25mg Take 1 Univers 25 mg 5-28 capsule by ity of capsule 00:00: mouth 3 00 (three) Medical times Branch daily as needed for Anxiety. hydrOXYzine 2020-0 Yes [id number] 25mg Take 1 Univers 25 mg 5-28 capsule by ity of capsule 00:00: mouth 3 [place] 00 (three) Medical times Branch daily as needed for Anxiety. hydrOXYzine 2020-0 Yes [id number] 25mg Take 1 Univers 25 mg 5-28 capsule by ity of capsule 00:00: mouth 3 [place] 00 (three) Medical times Branch daily as needed for Anxiety. Miscellaneo 2020-0 Yes [id number] Diagnosis: [facility] 2-27 M72.2Dispe ity of Supply Kit 00:00: nse shoe [place] as 00 inserts # Medical 2 for Branch daily use (modify to shoe and coverage per patient's insurance) Miscellaneo Yes [id number] Diagnosis: [facility] 2-27 M72.2Dispe ity of Supply Kit 00:00: nse shoe [place] as 00 inserts # Medical 2 for Branch daily use (modify to shoe and coverage per patient's insurance) Miscellaneo Yes [id number] Diagnosis: [facility] 2-27 M72.2Dispe ity of Supply Kit 00:00: nse shoe [place] as 00 inserts # Medical 2 for Branch daily use (modify to shoe and coverage per patient's insurance) Miscellaneo Yes [id number] Diagnosis: [facility] 2-27 M72.2Dispe ity of Supply Kit 00:00: nse shoe [place] as 00 inserts # Medical 2 for Branch daily use (modify to shoe and coverage per patient's insurance) albuterol Yes [id number] 2.5mg Inhale 3 Univers 2.5 mg /3 7-24 mL every 4 ity of mL (0.083 00:00: (four) [place] %) 00 hours as Medical nebulizer needed for Bran ch solution Wheezing or Shortness of Breath. albuterol Yes [id number] 2.5mg Inhale 3 Univers 2.5 mg /3 7-24 mL every 4 ity of mL (0.083 00:00: (four) [place] %) 00 hours as Medical nebulizer needed for Bran ch solution Wheezing or Shortness of Breath. albuterol Yes [id number] 2.5mg Inhale 3 Univers 2.5 mg /3 7-24 mL every 4 ity of mL (0.083 00:00: (four) [place] %) 00 hours as Medical nebulizer needed for Bran ch solution Wheezing or Shortness of Breath. albuterol Yes [id number] 2.5mg Inhale 3 Univers 2.5 mg /3 7-24 mL every 4 ity of mL (0.083 00:00: (four) [place] %) 00 hours as Medical nebulizer needed for Bran ch solution Wheezing or Shortness of Breath. ibuprofen 2018-0 Yes 600mg Take 1 Unive rs 600 mg 5-27 tablet by ity of tablet 00:00: mouth [place] 00 every 6 Medical (six) Branch hours as needed for Pain (scale 1-3) or Pain (scale 4-6) (Pain). Take with food or milk. ibuprofen 2018-0 Yes 600mg Take 1 Unive rs 600 mg 5-27 tablet by ity of tablet 00:00: mouth [place] 00 every 6 Medical (six) Branch hours as needed for Pain (scale 1-3) or Pain (scale 4-6) (Pain). Take with food or milk. ibuprofen 2018-0 Yes 600mg Take 1 Unive rs 600 mg 5-27 tablet by ity of tablet 00:00: mouth [place] 00 every 6 Medical (six) Branch hours as needed for Pain (scale 1-3) or Pain (scale 4-6) (Pain). Take with food or milk. ibuprofen 2018-0 Yes 600mg Take 1 Unive rs 600 mg 5-27 tablet by ity of tablet 00:00: mouth [place] 00 every 6 Medical (six) Branch hours as needed for Pain (scale 1-3) or Pain (scale 4-6) (Pain). Take with food or milk. Immunizations Ordered Filled Immunization Date Status Comments [facility] e Immunization Name Name Influenza Virus 2021-02-12 Completed Universit y of Vaccine Quad IM, 00:00:00 [facility] [place] [facility] dical Preserv and ABX Branch Free 6 MO-64 YRS Influenza Virus 2021-02-12 Completed Universit y of Vaccine Quad IM, 00:00:00 [place] [facility] dical Preserv and ABX Branch Free 6 MO-64 YRS Influenza Virus 2021-02-12 Completed Universit y of Vaccine Quad IM, 00:00:00 [place] Me dical Preserv and ABX Branch Free 6 MO-64 YRS Influenza Virus 2021-02-12 Completed Universit y of Vaccine Quad IM, 00:00:00 [facility] [place] [facility] dical Preserv and ABX Branch Free 6 MO-64 YRS TDAP 2020-12-01 Completed [facility] 00:00:00 [facility] TDAP 2020-12-01 Completed [facility] 00:00:00 [facility] TDAP 2020-12-01 Completed [facility] 00:00:00 [facility] TDAP 2020-12-01 Completed University of 00:00:00 [facility] Influenza Virus 2020-07-31 Completed Universit y of Vaccine Quad .5 mL 00:00:00 [place] [facility] IM 6+ MO Branch Influenza Virus 2020-07-31 Completed Universit y of Vaccine Quad .5 mL 00:00:00 [place] [facility] IM 6+ MO Branch Influenza Virus 2020-07-31 Completed Universit y of Vaccine Quad .5 mL 00:00:00 [place] [facility] IM 6+ MO Branch Influenza Virus 2020-07-31 Completed Universit y of Vaccine Quad .5 mL 00:00:00 [place] [facility] IM 6+ MO Branch Influenza Virus 2019-03-28 Completed Universit y of Vaccine Quad .5 mL 00:00:00 [facility] [place] [facility] IM 6+ MO Branch Influenza Virus 2019-03-28 Completed Universit y of Vaccine Quad .5 mL 00:00:00 [facility] 6+ MO Branch Influenza Virus 2019-03-28 Completed Universit y of Vaccine Quad .5 mL 00:00:00 [place] [facility] IM 6+ MO Branch Influenza Virus 2019-03-28 Completed Universit y of Vaccine Quad .5 mL 00:00:00 [facility] 6+ MO Branch Pneumococcal 13 2018-11-09 Completed Universit y of Conjugate, PCV13 00:00:00 [facility] [place] [facility] dical (Prevnar 13) Branch Pneumococcal 13 2018-11-09 Completed Universit y of Conjugate, PCV13 00:00:00 [facility] [place] [facility] dical (Prevnar 13) Branch Pneumococcal 13 2018-11-09 Completed Universit y of Conjugate, PCV13 00:00:00 [facility] [place] [facility] dical (Prevnar 13) Branch Pneumococcal 13 2018-11-09 Completed Universit y of Conjugate, PCV13 00:00:00 [facility] [place] [facility] dical (Prevnar 13) Branch Influenza Virus 2018-01-31 Completed Universit y of Vaccine Quad IM 3+ 00:00:00 [facility] Influenza Virus 2018-01-31 Completed Universit y of Vaccine Quad IM 3+ 00:00:00 [facility] Influenza Virus 2018-01-31 Completed Universit y of Vaccine Quad IM 3+ 00:00:00 [facility] Influenza Virus 2018-01-31 Completed Universit y of Vaccine Quad IM 3+ 00:00:00 [facility] TDAP 2017-06-30 Completed University of 00:00:00 [facility] TDAP 2017-06-30 Completed University of 00:00:00 [facility] TDAP 2017-06-30 Completed University of 00:00:00 [facility] TDAP 2017-06-30 Completed University of 00:00:00 [facility] Influenza Virus 2017-05-06 Completed Universit y of Vaccine Quad IM 00:00:00 [place] [facility] ical Multi-dose 6+ MO Branch Influenza Virus 2017-05-06 Completed Universit y of Vaccine Quad IM 00:00:00 [place] [facility] ical Multi-dose 6+ MO Branch Influenza Virus 2017-05-06 Completed Universit y of Vaccine Quad IM 00:00:00 [place] [facility] ical Multi-dose 6+ MO Branch Influenza Virus 2017-05-06 Completed Universit y of Vaccine Quad IM 00:00:00 [place] [facility] ical Multi-dose 6+ MO Branch Vital Signs Vital Name Observation Time Observation Value Comments Source Systolic blood 2021-03-24 16:25:00 119 mm[Hg] Univer sity of pressure [facility] Diastolic blood 2021-03-24 16:25:00 67 mm[facility]Hg[facility] Heart rate 2021-03-24 16:25:00 73 /min [facility] Body temperature 2021-03-24 16:25:00 36.39 Jazzy [facility] Respiratory rate 2021-03-24 16:25:00 16 /min [facility] Body weight 2021-03-24 16:25:00 102.331 kg [facility] BMI 2021-03-24 16:25:00 34.30 kg/m2 [facility] Oxygen saturation in 2021-03-24 16:25:00 97 /min [facility] Arterial blood by [facility] Pulse oximetry Branch Procedures This patient has no known procedures. Encounters Start End Encounter Admission Attending Care Care Encounter Source Date/Time Date/Time Type Type Clinicians Facility Department ID 2022-02-17 2022-02-17 Outpatient Dari SOUSA [facility] [id number] Univers 08:30:00 08:30:00 ANDRESSA [id number] ity [facility] 2021-11-13 2021-11-13 Outpatient Dari WILLAMS [facility] [id number] Univers 09:15:00 09:15:00 PEEWEE [id number] ity o f [facility] 2021-11-07 2021-11-07 Nurse SHIRLEY Starr [id number] Univers 00:00:00 00:00:00 Triage Elizabeth HUNG [id number] it y of [facility] [id number] [place] as [id number] [address] 2021-09-22 2021-09-22 [facility] [id number] Univers 08:30:00 08:30:00 MAGDALENA [id number] [facility] 2021-09-22 2021-09-22 [facility] [id number] Univers 08:30:00 08:30:00 MAGDALENA [facility] 2021-06-10 [facility] [id number] Univers 00:00:00 00:00:00 Brayan MOLINA [id number] i ty [id number] [id number] Tn dical NAL 044 [facility] 2021-06-10 2021-06-10 Refill [facility] [id number] Univers 00:00:00 00:00:00 Brayan MOLINA [id number] i ty [id number] [phone] Tn dical NAL 044 [facility] 2021-03-24 2021-03-24 Office [facility] [id number] Univers 10:13:30 10:28:30 Visit Magdalena MOLINA [id number] i ty [id number] [phone] Tn dical NAL 188 [facility] 2020-11-15 2020-11-15 Patient [facility] [id number] 00:00:00 00:00:00 Secure Msg Brayan Molina [id number] [place] [id number] Professio [phone] [address] 2020-11-01 2020-11-01 Telephone [facility] [phone] [id number] 00:00:00 00:00:00 [facility] [id number] [place] [id number] Professio [phone] [place] [address] Office Building [facility] 2020-11-01 2020-11-01 [address]840.114 [id number] 00:00:00 00:00:00 Brayan Michelle [id number] [place] [id number] Professio [phone] [address] 2020-10-15 2020-10-15 [facility] [id number] 00:00:00 00:00:00 Brayan Reynosoton [id number] [place] [id number] Professio [phone] [address] Results This patient has no known results.
[2021-11-07 20:03] LABS: Urine Blood 3+ (Negative); Urine Glucose Negative (Negative); Urine Protein Negative (Negative); Urine Specific Gravity >=1.030 (1.005-1.030); Urine pH 5.5 (5.0-7.0)
--- NOTE | 2021-11-07 21:23 | EDPHYS ---
Physician Documentation [facility] Name: Mikaela Davila Age: 40 yrs Sex: Female : 1980 Arrival Date: 11/07/2021 Time: 19:07 Bed 28 Private MD: ED Physician Cecy Lgaunas HPI: 11/07 21:20 This 40 yrs old Female presents to ER via Ambulatory with complaints of Vaginal sp3 Bleeding, Pelvic Pain. 21:20 10-year-old female presents to the ED for chief complaint "I think I am having a sp3 miscarriage" patient states that she has had 5+ test at home and her last menstrual cycle was 5 to 6 weeks ago. She made an appointment with her OB physician for follow-up but over the last 24 hours has had heavy menstrual bleeding and cramping. She is A1 with the assumption that she is currently . She denies headache, fever, chest pain, shortness of breath, upper abdominal pain, rash, syncope, near syncope, neuro symptoms, any other ROS at this time. Her blood type is a positive.. 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 - Social history:: Smoking status: Patient reports the use of cigarette tobacco products, denies chronic smoking, but will smoke occasionally, Patient/guardian denies using alcohol. ROS: 21:21 Constitutional: Negative for fever, chills, and weight loss, Eyes: Negative for injury, sp3 pain, redness, and discharge, ENT: Negative for injury, pain, and discharge, Neck: Negative for injury, pain, and swelling, Cardiovascular: Negative for chest pain, palpitations, and edema, Respiratory: Negative for shortness of breath, cough, wheezing, and pleuritic chest pain, Back: Negative for injury and pain, MS/Extremity: Negative for injury and deformity, Skin: Negative for injury, rash, and discoloration, Neuro: Negative for headache, weakness, numbness, tingling, and seizure. 21:21 All other systems are negative. Exam: 21:21 Constitutional: This is a well developed, well nourished patient who is awake, alert, sp3 and in no acute distress. Head/Face: Normocephalic, atraumatic. Neck: Trachea midline, no thyromegaly or masses palpated, and no cervical lymphadenopathy. Supple, full range of motion without nuchal rigidity, or vertebral point tenderness. No Meningismus. Chest/axilla: Normal chest wall appearance and motion. Nontender with no deformity. No lesions are appreciated. Cardiovascular: Regular rate and rhythm with a normal S1 and S2. No gallops, murmurs, or rubs. Normal PMI, no JVD. No pulse deficits. Respiratory: Lungs have equal breath sounds bilaterally, clear to auscultation and percussion. No rales, rhonchi or wheezes noted. No increased work of breathing, no retractions or nasal flaring. Abdomen/GI: Soft, non-tender, with normal bowel sounds. No distension or tympany. No guarding or rebound. No evidence of tenderness throughout. Skin: Warm, dry with normal turgor. Normal color with no rashes, no lesions, and no evidence of cellulitis. MS/ Extremity: Pulses equal, no cyanosis. Neurovascular intact. Full, normal range of motion. Neuro: Awake and alert, GCS 15, oriented to person, place, time, and situation. Cranial nerves II-XII grossly intact. Motor strength 5/5 in all extremities. Sensory grossly intact. Cerebellar exam normal. Normal gait. Psych: Awake, alert, with orientation to person, place and time. Behavior, mood, and affect are within normal limits. 21:21 : Normal exam with slight bleeding. No rash noted.. Vital Signs: 19:21 BP 156 / 86; Pulse 81; Resp 18; Temp 98.5(O); Pulse Ox 99% on R/A; Weight 92.99 kg; ld1 Height 5 ft. 8 in. (172.72 cm); Pain 7/10; 19:21 Body Mass Index 31.17 (92.99 kg, 172.72 cm) ld1 MDM: 19:42 Patient medically screened. sp3 21:20 Data reviewed: vital signs, nurses notes. sp3 21:22 ED course: Prezas test was negative and serum hCG yielded a result of 1. No other sp3 laboratories were obtained. Ultrasound demonstrates empty uterus with no abnormalities or swelling in the adnexa. I discussed this with the compliance technician also have reported the back to the patient. 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 11/07 20:03 Order name: Urine Dipstick-Ancillary; Complete Time: 21:03 EDMS 11/07 20:04 Order name: Quantitative Hcg; Complete Time: 21:03 sp3 11/07 19:42 Order name: Urine Dipstick-Ancillary (obtain specimen); Complete Time: 20:04 sp3 11/07 19:42 Order name: Urine Test (obtain specimen); Complete Time: 20:04 sp3 11/07 20:04 Order name: 1st Trimest Single 1st Fetus sp3 Administered Medications: No medications were administered Disposition Summary: 11/07/21 21:23 Discharge Ordered Location: Home sp3 Condition: Stable sp3 Diagnosis - Abnormal uterine and vaginal bleeding, unspecified sp3 Followup: sp3 - With: Private Physician - When: Upon discharge from the Emergency Department - Reason: Recheck today's complaints Discharge Instructions: - Discharge Summary Sheet sp3 - Miscarriage sp3 Forms: - Medication Reconciliation Form sp3 - Thank You Letter sp3 - Antibiotic Education sp3 - Prescription Opioid Use sp3 Signatures: Dispatcher [employer] [facility] Lilibeth Adams RN RN ld1 Cecy Lagunas MD MD sp3
--- NOTE | 2021-11-07 21:23 | ER ---
Nurse's Notes [facility] Name: Mikaela Davila Age: 40 yrs Sex: Female : 1980 Arrival Date: 11/07/2021 Time: 19:07 Bed 28 Private MD: Diagnosis: Abnormal uterine and vaginal bleeding, unspecified Presentation: 11/07 19:21 Chief complaint: Patient states: RLQ pain - abdominal cramping - vaginal bleeding began ld1 yesterday evening. Today it became heavier. Pt states "I am having a miscarriage.". Coronavirus screen: Client presents with at least one sign or symptom that may indicate coronavirus-19. At this time, the client does not indicate any symptoms associated with coronavirus-19. Coronavirus screen: Client presents with at least one sign or symptom that may indicate coronavirus-19. Ebola Screen: No symptoms or risks identified at this time. Initial Sepsis Screen: Does the patient meet any 2 criteria? No. Patient's initial sepsis screen is negative. Does the patient have a suspected source of infection? No. Patient's initial sepsis screen is negative. Risk Assessment: Do you want to hurt yourself or someone else? Patient reports no desire to harm self or others. Onset of symptoms was November 07, 2021. 19:21 Method Of Arrival: Ambulatory ld1 19:21 Acuity: CECILIO 3 ld1 Triage Assessment: 19:22 General: Appears in no apparent distress. comfortable, Behavior is calm, cooperative, ld1 appropriate for age. Pain: Complains of pain in abdomen Pain does not radiate. Pain currently is 7 out of 10 on a pain scale. Quality of pain is described as crampy. EENT: No signs and/or symptoms were reported regarding the EENT system. Neuro: Level of Consciousness is awake, alert, obeys commands, Oriented to person, place, time, situation. Cardiovascular: Capillary refill < 3 seconds Patient's skin is warm and dry. Respiratory: Airway is patent Respiratory effort is even, unlabored. GI: Abdomen is round non-distended, Reports cramping. : Reports vaginal bleeding that is bright red, with clots. Derm: No signs and/or symptoms reported regarding the dermatologic system. Musculoskeletal: No signs and/or symptoms reported regarding the musculoskeletal system. 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 - Social history:: Smoking status: Patient reports the use of cigarette tobacco products, denies chronic smoking, but will smoke occasionally, Patient/guardian denies using alcohol. Screenin:31 Abuse screen: Denies threats or abuse. Nutritional screening: No deficits noted. kl Tuberculosis screening: No symptoms or risk factors identified. Fall Risk None identified. Assessment: 19:30 General: Appears distressed, uncomfortable, well developed, well nourished, Behavior is kl cooperative, quiet. Pain: Complains of pain in right lower quadrant Pain currently is 7 out of 10 on a pain scale. Neuro: No deficits noted. Cardiovascular: No deficits noted. Respiratory: No deficits noted. GI: Reports lower abdominal pain, cramping, vaginal bleeding. : No deficits noted. No signs and/or symptoms were reported regarding the genitourinary system. EENT: No deficits noted. No signs and/or symptoms were reported regarding the EENT system. Derm: No deficits noted. No signs and/or symptoms reported regarding the dermatologic system. Vital Signs: 19:21 BP 156 / 86; Pulse 81; Resp 18; Temp 98.5(O); Pulse Ox 99% on R/A; Weight 92.99 kg; ld1 Height 5 ft. 8 in. (172.72 cm); Pain 7/10; 19:21 Body Mass Index 31.17 (92.99 kg, 172.72 cm) ld1 ED Course: 19:07 Patient arrived in ED. as 19:22 Triage completed. ld1 19:22 Arm band placed on right wrist. ld1 19:38 Cecy Lagunas MD is Attending Physician. sp3 20:30 No apparent distress. Awaiting lab results. kl 21:33 No provider procedures requiring assistance completed. Patient did not have IV access kl during this emergency room visit. 21:34 Patient has correct armband on for positive identification. kl 21:37 US 1st Trimest Single 1st Fetus In Process Unspecified. EDMS Administered Medications: No medications were administered Medication: 21:33 VIS not applicable for this client. kl Outcome: 21:23 Discharge ordered by . sp3 21:34 Discharged to home ambulatory. kl 21:34 Condition: good 21:34 Discharge instructions given to patient, Instructed on discharge instructions, follow up and referral plans. 21:34 Patient left the ED. kl Signatures: Dispatcher [employer] EDMS Shanon Sherman, RN Griselda Ramachandran Lauren, RN RN ld1 Cecy Lagunas MD MD sp3
--- NOTE | 2021-11-07 22:03 | RAD REPORT ---
EXAM DESCRIPTION: US - 1St Trimest Single 1St Fetus - 11/07/2021 9:35 pm CLINICAL HISTORY: ABD CRAMPING, COMPARISON: No comparisonsNo comparisons FINDINGS: Uterus is normal in size. Normal thickness of the endometrium. No IUP is seen. Right ovary obscured by bowel gas. Left ovary is normal with normal Doppler blood flow. IMPRESSION: No IUP is identified. In the setting of an elevated HCG level, this could indicate of unknown location. Advise fo llow-up serial HCG measurement and pelvic sonography.
[2021-11-07 23:16] VITALS: BP 156/86; TEMP 98.5; O2SAT 99
== END 2021-11-07 21:34 | disposition home or self-care (01) ==
LOC: ER 19:07
DX: N93.9 Abnormal uterine and vaginal bleeding, unspecified (principal); E11.9 Type 2 diabetes mellitus without complications; F17.210 Nicotine dependence, cigarettes, uncomplicated; Z88.0 Allergy status to penicillin; Z88.1 Allergy status to other antibiotic agents
CPT/HCPCS: 36415; 76801; 81003; 84702; 99283